=== PATIENT | male | born 1975 | race Asian ===

== ENCOUNTER 2019-01-27 09:35 | Outpatient (CLI) | payer OTHER ==
--- NOTE | 2019-01-27 11:14 | MRI ---
MRI Upper Ext Jt Rt WO Con History: Traumatic triangular fibrocartilage tear. S83.591 a Comparison: Outside facility radiographs Findings: Bones: There is a airspace susceptibility along the volar aspect distal radial metaphysis. Moderate degenerative disease of the distal radioulnar joint. Mild positive ulnar variance. No acute fracture. There is an old scaphoid waist fracture with nonunion with sclerosis in either side of the fracture l ine as well as subcortical cysts. Scapholunate interval is widened with erosions of the medial margin of the scaphoid and lateral margin of the lunate with scar or granulation tissue in situ. Tendons: No significant tenosynovitis. Normal appearance of the extensor carpi ulnaris. Normal appear ance of the subcutaneous. Triangular fibrocartilage: Severe attenuation of the central articular disc. The foveal and styloid i nsertions normal as well as the radial insertion. A full-thickness perforation is not appreciated. Intrinsic ligaments: Chronic tear scapholunate ligament with granulation scar in situ. Partial tear m embers portion of the lunotriquetral ligament. Neurovascular bundles: Intact Muscles: Muscle signal and bulk is normal. Cartilage: There is cartilage fraying and fibrillation along the medial margin of the lunate. High-gr jarad chondral loss along the scaphoid fossa of the radius. There is mild chondral loss between the scaphoid capitate joint. There is also moderate chondral loss at the lunate articulation with the ham ate. Impression: 1. 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 This includes sev ere attenuation without tear of the central articular disc triangular fibrocartilage, few focal thickness cartilage fissures and adjacent fraying of the medial lunate cartilage, and mild distal rad ioulnar joint synovitis. 2. 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 No dorsal intercalated segment al stability. 3. Chronic tear scapholunate ligament with some scar or granulation tissue in situ with scaphoid and lunate erosions mild widening. 4. Advanced chondral loss of the scaphoid and lunate fossa of the radius, scaphoid capitate articulat ion, lunocapitate and the lunohamate articulation, Frey stage III/IV SLAC wrist.
== END 2019-01-27 09:36 | disposition home or self-care (01) ==
LOC: SCSMRI 09:35
PROVIDERS: ATTEND Orthopaedic Surgery Hand Surgery
DX: S63.591A Other specified sprain of right wrist, initial encounter (principal); S62.001K Unspecified fracture of navicular [scaphoid] bone of right wrist, subsequent encounter for fracture with nonunion

== ENCOUNTER 2021-08-05 14:28 | Outpatient (CLI) | payer BC | END 2021-08-05 14:29 | disposition home or self-care (01) | LOC: SCSRAD 14:28 | PROVIDERS: ATTEND Family Medicine | DX: M54.50 Low back pain, unspecified (principal); M47.816 Spondylosis without myelopathy or radiculopathy, lumbar region | CPT/HCPCS: 72100 ==